=== PATIENT | female | born 1990 | race Hispanic/Latino ===

== ENCOUNTER 2017-05-09 19:05 | Emergency (ER) | payer SELFPAY ==
[2017-05-09] MEDS ORDERED: Ketorolac Tromethamine 30 MG/ML VIAL ONE (20:27)
--- NOTE | 2017-05-09 21:27 | RAD ---
MANDIBLE FOUR VIEW: History: Injury. Comparison: None. FINDINGS: The mandible is intact. Mandibular condyles are well seated within their condylar fossa. Visualized p ortion of the cervical spine is normal. IMPRESSION: No fracture of the mandible. POS: H
== END 2017-05-09 21:39 | disposition home or self-care (01) ==
LOC: ERS 19:05
DX: S16.1XXA Strain of muscle, fascia and tendon at neck level, initial encounter (principal); S39.012A Strain of muscle, fascia and tendon of lower back, initial encounter; S00.83XA Contusion of other part of head, initial encounter; S00.03XA Contusion of scalp, initial encounter; S20.311A Abrasion of right front wall of thorax, initial encounter; F17.210 Nicotine dependence, cigarettes, uncomplicated; Y09 Assault by unspecified means
CPT/HCPCS: 70110; 96372; J1885

== ENCOUNTER 2020-09-25 03:45 | Emergency (ER) | payer OTHER ==
[2020-09-25] MEDS ORDERED: Acetaminophen 500 MG TAB ONE (04:41)
== END 2020-09-25 04:44 | disposition home or self-care (01) ==
LOC: ERS 03:45
DX: K08.89 Other specified disorders of teeth and supporting structures (principal)
CPT/HCPCS: 99282

== ENCOUNTER 2023-07-09 21:47 | Emergency (ER) | payer OTHER, SELFPAY ==
[2023-07-09 22:46] LABS: Bacteria/HPF None Seen HPF (None Seen); Bilirubin Negative (Negative); Blood, Urine 1+ (Negative); CAUTI Indications for Culture Pelvic or flank pain; Clarity Clear (Clear); Glucose, Urine (Dipstick) Greater than 1000 mg/dL (Negative); Ketone, Urine Trace mg/dL (Negative); Leukocyte 75 Leu/uL (Negative); Nitrite Negative (Negative); Protein, Urine (Dipstick) Negative (Neg-Trace); RBC/HPF 0-3 HPF (0-3); Specific Gravity, Urine 1.043 (1.002-1.036); Squamous Epithelial 0-3 HPF (0-3); Urobilinogen Normal mg/dL (Less than 2); pH, Urine 5.5 (5.0-9.0)
[2023-07-09 22:48] LABS: Urine Culture Reflex No No
[2023-07-10 19:49] LABS: Chlamydia by PCR, Vaginal Swab Not Detected (NotDetected); GC by PCR, Vaginal Swab Not Detected (NotDetected)
== END 2023-07-09 23:23 | disposition home or self-care (01) ==
LOC: ERS 21:47
DX: N39.0 Urinary tract infection, site not specified (principal); F17.290 Nicotine dependence, other tobacco product, uncomplicated
CPT/HCPCS: 81001; 87480; 87491; 87510; 87591; 87660; 99283

== ENCOUNTER 2023-11-30 07:53 | Outpatient (CLI) | payer OTHER | END 2023-11-30 07:54 | disposition home or self-care (01) | LOC: BICMAMMO 07:53 | PROVIDERS: ATTEND Family Medicine | DX: N63.25 Unspecified lump in the left breast, overlapping quadrants (principal); N63.12 Unspecified lump in the right breast, upper inner quadrant; N63.13 Unspecified lump in the right breast, lower outer quadrant | CPT/HCPCS: 76642; 77066; G0279 ==